=== PATIENT | male | born 1985 | race American Indian/Alaskan Native ===

== ENCOUNTER 2021-04-23 22:44 | Emergency (ER) | payer SELFPAY ==
[2021-04-23] MEDS ORDERED: ACETAMINOPHEN 500 MG TAB PO ONE (23:32)
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
[2021-04-24] MEDS ORDERED: ACETAMINOPHEN 500 MG TAB PO ONE (04:30)
[2021-04-24 04:49] VITALS: BP 126/78
== END 2021-04-24 04:49 | disposition home or self-care (01) ==
LOC: ED 22:44
DX: S20.211A Contusion of right front wall of thorax, initial encounter (principal); S00.83XA Contusion of other part of head, initial encounter; M62.838 Other muscle spasm; V89.2XXA Person injured in unspecified motor-vehicle accident, traffic, initial encounter; Y92.488 Other paved roadways as the place of occurrence of the external cause; Y93.9 Activity, unspecified; Y99.8 Other external cause status
CPT/HCPCS: 70450; 72125